=== PATIENT | female | born 1965 | race African-American/Black ===

== ENCOUNTER 2023-10-25 07:44 | Emergency (ER) | payer OTHER ==
[~2023-10-25] VITALS: Ht 172.7 cm; Wt 136.0 kg
[2023-10-25 07:49] VITALS: TEMP 97.9; O2SAT 100
[2023-10-25] MEDS: KETOROLAC 60MG/2ML VIAL IM ONE (08:45)
[2023-10-25] MEDS: HYDROCODONE/ACETAMINOPHEN 7.5/325MG TABLET PO ONE (08:45)
[2023-10-25 09:21] LABS: BASOPHILS % 0.2 % (0.0-2.0); EOSINOPHILS % 1.1 % (0.0-5.0); HEMATOCRIT. 38.8 % (36.0-48.0); HEMOGLOBIN. 13.1 g/dL (12.0-16.0); LYMPHOCYTES % 34.2 % (20.0-50.0); MEAN CORPUSCULAR HEMOGLOBIN 29.6 pg (28.0-32.0); MEAN CORPUSCULAR HGB CONC 33.7 g/dL (31.0-37.0); MEAN PLATELET VOLUME 8.7 fl (7.4-10.4); NEUTROPHILS % 56.5 % (40.0-76.0); PLATELET 234 x1000/uL (130-400); RED BLOOD CELL COUNT 4.41 mill/uL (4.2-5.4); WHITE BLOOD COUNT 10.2 x1000/uL (4.5-11.0)
[2023-10-25 09:56] LABS: ALANINE AMINOTRANSFERASE 30 IU/L (10-49); ASPARTATE AMINOTRANSFERASE 16 IU/L (<34); BILIRUBIN TOTAL 0.6 mg/dL (0.1-1.0); CALCIUM 9.3 mg/dL (8.7-10.4); CARBON DIOXIDE 34 mEq/L (21-32); CHLORIDE 99 mEq/L (98-107); CREATININE 0.8 mg/dL (0.6-1.0); GLUCOSE 139 mg/dL (70-105); POTASSIUM 3.4 mEq/L (3.5-5.1); PROTEIN TOTAL 6.8 g/dL (6.0-8.3); SODIUM 139 mEq/L (136-145); UREA NITROGEN BLOOD 14 mg/dL (9-23)
[2023-10-25 10:11] LABS: TROPONIN I HIGH SENSITIVITY < 4 ng/L (3.0-34)
[2023-10-25 12:50] LABS: TROPONIN I HIGH SENSITIVITY < 4 ng/L (3.0-34)
[2023-10-25] MEDS ORDERED: IBUP-1525 MT (13:02)
[2023-10-25] MEDS ORDERED: ACET-2708 MT (13:02)
[2023-10-25 13:39] VITALS: BP 117/80; PULSE 81; RESP 13
== END 2023-10-25 14:40 | disposition home or self-care (01) ==
LOC: ER 07:44
DX: M25.512 Pain in left shoulder (principal); J45.909 Unspecified asthma, uncomplicated; I10 Essential (primary) hypertension; E05.80 Other thyrotoxicosis without thyrotoxic crisis or storm; V98.8XXA Other specified transport accidents, initial encounter; Y93.89 Activity, other specified; Y92.89 Other specified places as the place of occurrence of the external cause; Y99.8 Other external cause status
CPT/HCPCS: 80053; 83880; 85025; 84484; 36415; 71045; 73030; 73562; 93005; 96372; 99285; J1885; Z7610